=== PATIENT | female | born 1950 | race Caucasian/White ===

== ENCOUNTER → 2023-06-25 06:39 | Day surgery (SDC) | payer MEDICARE, OTHER, SELFPAY | LOC: GI 06:39 | PROVIDERS: ATTENDING PHYSICIAN Specialist | DX: Z12.11 Encounter for screening for malignant neoplasm of colon (principal); D12.5 Benign neoplasm of sigmoid colon; K62.1 Rectal polyp; Z85.038 Personal history of other malignant neoplasm of large intestine; Z98.0 Intestinal bypass and anastomosis status | CPT/HCPCS: 45385; 45380; 88305 ==

== ENCOUNTER → 2023-07-08 12:45 | Outpatient (REF) | payer MEDICARE, OTHER, SELFPAY | LOC: RAD 12:45 | PROVIDERS: ATTENDING PHYSICIAN Radiology Radiation Oncology; FAMILY PHYSICIAN Internal Medicine | DX: C34.31 Malignant neoplasm of lower lobe, right bronchus or lung (principal) | CPT/HCPCS: 71250 ==

== ENCOUNTER → 2023-10-21 13:24 | Outpatient (REF) | payer MEDICARE, OTHER, SELFPAY | LOC: RAD 13:24 | PROVIDERS: ATTENDING PHYSICIAN Radiology Radiation Oncology; FAMILY PHYSICIAN Internal Medicine | DX: C34.31 Malignant neoplasm of lower lobe, right bronchus or lung (principal) | CPT/HCPCS: 71250 ==

== ENCOUNTER → 2024-05-02 10:39 | Outpatient (REF) | payer MEDICARE, OTHER, SELFPAY | LOC: RAD 10:39 | PROVIDERS: ATTENDING PHYSICIAN Radiology Radiation Oncology; FAMILY PHYSICIAN Internal Medicine | DX: C34.31 Malignant neoplasm of lower lobe, right bronchus or lung (principal) | CPT/HCPCS: 71250 ==

== ENCOUNTER → 2024-12-09 15:12 | Outpatient (REF) | payer MEDICARE, OTHER, SELFPAY | LOC: RAD 15:12 | PROVIDERS: ATTENDING PHYSICIAN Radiology Radiation Oncology; FAMILY PHYSICIAN Family Medicine | DX: C34.31 Malignant neoplasm of lower lobe, right bronchus or lung (principal) | CPT/HCPCS: 71250 ==